=== PATIENT | female | born 1975 | race Caucasian/White ===

== ENCOUNTER → 2019-01-21 10:25 | Outpatient (CLI) | payer OTHER, SELFPAY ==
[2019-01-21 10:20] VITALS: BMI 32.7
--- NOTE | 2019-01-21 10:26 | RAD_ITS ---
STUDY: X-RAY - RIGHT KNEE REASON FOR EXAM: Pain. TECHNIQUE: 4 view(s) of the knee. COMPARISON: None. FINDINGS: Normal visualized distal femur. Normal visualized proximal tibia and fibula. Normal proximal tibiofibular articulation. Normal medial femorotibial compartment. Normal lateral femorotibial compartment. There is mild lateral tilt of the patella. The soft tissue structures are unremarkable. RAD/Knee 4 or More Views IMPRESSION: Mild lateral tilt of the patella. Electronically Signed: Sanchez Parsons MD at 16:02 EST Tel , Service support ,
--- NOTE | 2019-01-21 10:26 | RAD_ITS ---
STUDY: X-RAY - LEFT KNEE REASON FOR EXAM: Pain. TECHNIQUE: 4 view(s) of the knee. COMPARISON: None. FINDINGS: Normal visualized distal femur. Normal visualized proximal tibia and fibula. Normal proximal tibiofibular articulation. Normal medial femorotibial compartment. Normal lateral femorotibial compartment. Normal patellofemoral articulation. The soft tissue structures are unremarkable. RAD/Knee 4 or More Views IMPRESSION: Normal x-ray examination of the left knee. Electronically Signed: Sanchez Parsons MD at 15:59 EST Tel , Service support ,
== END ==
LOC: HPRAD 10:25
PROVIDERS: Referring Provider Orthopaedic Surgery; Visit Provider Orthopaedic Surgery
DX: M25.561 Pain in right knee (principal); M25.562 Pain in left knee
CPT/HCPCS: 73564

== ENCOUNTER → 2020-03-22 09:36 | Outpatient (CLI) | payer OTHER, SELFPAY ==
[2019-01-21 10:20] VITALS: BMI 32.7
--- NOTE | 2020-03-22 09:41 | RAD_ITS ---
STUDY: X-RAY - PELVIS REASON FOR EXAM: Female, 45 years old. LOWER BACK/HIP PAIN TECHNIQUE: One view of the pelvis was obtained. COMPARISON: None. FINDINGS: There is a non-specific bowel gas pattern. There are multiple calcified phleboliths in the left hemipelvis. Normal bilateral iliac wings, sacroiliac joints and visualized sacrum. Normal visualized bilateral superior and inferior pubic rami. Normal pubic symphysis. Normal ischial tuberosities. Normal visualized right femoral head. Normal right acetabulum. Normal right hip joint. Normal visualized left femoral head. Normal left acetabulum. Normal left hip joint. RAD/Pelvis 1 or 2 Views IMPRESSION: Normal x-ray examination of the pelvis. Electronically Signed: Berto Tate, at 13:20 EDT , Service support ,
[2020-03-22 12:31] LABS: Absolute Lymphocyte Count 1.24 X10^3/uL (0.83-4.51); Absolute Neutrophil Count 8.2 X10^3/uL (2.0-7.7); Basophil# 0.04 X10^3/uL; Basophil% 0.4 % (0-1); Hematocrit 46.8 % (37-47); Hemoglobin 15.4 g/dL (12.0-15.0); Lymphocyte # 1.24 X10^3/ul (4.0); Lymphocyte % 12.3 % (19-41); Mean Corp Hgb Conc 32.9 g/dL (32-36); Mean Corpuscular Hgb 29.7 pg (27.0-32.0); Mean Corpuscular Volume 90.2 fL (81-99); Mean Platelet Vol. 11.6 fl (6.2-12.0); Monocyte# 0.49 X10^3/uL; Monocyte% 4.9 % (0-10); NRBC Flagged by Analyzer 0 % (0-5); Neutrophil # 8.16 X10^3/uL (2.7-7.7); Platelet Count 314 K/mm3 (150-450); RBC Distribution Width CV 13.5 % (11.6-14.6); RBC Distribution Width SD 44.9 fl (35.1-43.9); Red Blood Count 5.19 M/mm3 (4.2-5.4); White Blood Count 10.1 K/mm3 (4.4-11.0)
[2020-03-22 12:46] LABS: Erythrocyte Sedimentation Rate 9 mm/hr (0-20)
[2020-03-22 13:06] LABS: ALB/GLOB Ratio 1.1 RATIO (0.9-2.4); AST(SGOT) 14 U/L (15-37); Alanine Aminotransfer ALT/SGPT 24 U/L (13-56); Albumin, Serum 3.9 g/dL (3.2-5.0); Alkaline Phosphatase 103 U/L (45-117); Anion Gap 4 (5-15); BUN 17 mg/dL (7-18); BUN/Creat Ratio 19.1 RATIO (10-20); CRP 7.84 mg/L (0.0-3.0); Calcium,Total 9.1 mg/dL (8.5-10.1); Chloride 109 mmol/L (98-107); Creatinine, Serum 0.89 mg/dL (0.55-1.02); EST Glomerular Filtration Rate 73 mL/min (>60); Est Glom Filt Rate - Afr Amer 88 mL/min (>60); Globulin 3.6 g/dL (2.2-4.2); Glucose 98 mg/dL (74-106); Protein, Total 7.5 g/dL (6.4-8.2); Rheumatoid Factor < 10.0 IU/mL (<15); Sodium Level 139 mmol/L (136-145)
[2020-03-22 13:19] LABS: Hepatitis B Surface Antibody Non-Reactive; Hepatitis B Surface Antigen Non-Reactive (Nonreactive); Hepatitis C Antibody Non-Reactive (Nonreactive)
[2020-03-24 01:25] LABS: ANTINUCLEAR ANTIBODIES DIRECT Negative (Negative)
[2020-03-28 23:53] LABS: CCP IgG Antibodies 8 units (0-19); HLA B27 Negative (.); Hepatitis B Core AB IgM Negative (Negative)
== END ==
LOC: MTLAB 09:39
PROVIDERS: PCP Nurse Practitioner Family; Referring Provider Internal Medicine Rheumatology; Visit Provider Internal Medicine Rheumatology
DX: M06.4 Inflammatory polyarthropathy (principal); M79.7 Fibromyalgia; M21.41 Flat foot [pes planus] (acquired), right foot; M21.42 Flat foot [pes planus] (acquired), left foot; E78.5 Hyperlipidemia, unspecified
CPT/HCPCS: 36415; 72170; 80053; 81374; 85025; 85652; 86038; 86140; 86200; 86431; 86705; 86706; 86803; 87340

== ENCOUNTER 2020-06-03 07:58 | Emergency (ER) | payer OTHER, SELFPAY ==
[2019-01-21 10:20] VITALS: BMI 32.7
[2020-06-03 08:00] VITALS: BP 127/85; PULSE 65; RESP 16; TEMP 36.6; O2SAT 97; BMI 34.0
--- NOTE | 2020-06-03 08:14 | CT_ITS ---
STUDY: CT ABDOMEN AND PELVIS WITH CONTRAST REASON FOR EXAM: Female, 45 years old. Abdominal pain RADIATION DOSAGE (If Supplied By Facility): CTDIvol = ( 17.77 ) mGy, DLP = ( 928.00 ) mGycm TECHNIQUE: Transaxial images were obtained from the dome of the diaphragm to the symphysis pubis with oral contrast. 100 ml of Isovue-370 contrast was administered. Sagittal and coronal images were reconstructed. Individualized dose optimization techniques were used for this CT. COMPARISON: None. FINDINGS: There is atelectasis at the lung bases. The visualized portions of the heart and pericardium are within normal limits. There are no calcified gallstones present. There are tiny indeterminate hypodensity in the liver, measuring 1.2 x 1.1 cm and the left lobe and 1.2 x 1.1 cm in the right lobe. The spleen is normal in size. The pancreas is within normal limits. The adrenal glands are within normal limits. There are no renal or ureteral stones. There is no hydronephrosis. There are no suspicious renal lesions. There is marked concentric thickening of the stomach wall in the distal body of the stomach. There is no bowel obstruction or inflammation. The appendix is visualized and appears normal. The aorta is normal in caliber. There is no abdominal or pelvic free air, free fluid, fluid collection or lymphadenopathy. There are physiologic cysts in the left adnexa. There are no destructive osseous lesions. CT/Abdomen/Pelvis WITH Contrast IMPRESSION: Marked concentric wall thickening in the distal body of the stomach. This likely represents gastritis. However, an underlying gastric mass cannot be excluded. Indeterminate hypodensities in the liver. These are nonspecific and may represent cysts or hemangioma. However, given the findings in the stomach, further evaluation with a liver protocol MRI is recommended to exclude a metastatic lesion. No bowel obstruction or inflammation. Normal appendix. Electronically Signed: Srinivasa Colindres, at 10:26 EDT Tel , Service support ,
--- NOTE | 2020-06-03 08:15 | ED.DCSUM_ITS ---
History of Present Illness Chief Complaint: Flank Pain Informant: Patient Onset: Yesterday Context: Gradual Onset Timing: Waxes and wanes Current Severity: Moderate Maximum Severity: Severe Narrative: Patient presents secondary to right flank pain. She states pain started yesterday morning. 2 days prior to this she had noted some nausea and dyspepsia. Patient was seen in the [place] [facility] yesterday. I was able to review the results from that visit. CT scan showed no renal calculi with a normal appendix and normal bowel. CBC, CMP, lipase, test all negative. Urinalysis did show 1+ bacteria with some white cells however there was high epithelial cells as well. Patient was discharged with [place], Zofran, and Keflex. Patient states in spite of this she still is very uncomfortable and was not able to sleep last night secondary to pain. Pain seems to be worse in the right lower quadrant at this time. - Past Medical History (1) Rheumatoid arthritis Status: Chronic (2) Anxiety Status: Chronic (3) Fibromyalgia Status: Chronic Past Medical History - Allergies and Home Meds Allergies/Adverse Reactions: Allergies egg Allergy (Verified 06/03/20 07:58) digestive issues Primary Care Physician: Nia Perez NP-C [Primary Care Provider] - Prior records reviewed: Yes Surgical History: - - Oophorectomy Smoking Status: Current some day smoker Drugs: Marijuana Review of Systems General: Denies: Fever Eyes: Denies: Visual changes - bilaterally ENT: Denies: Bilateral ear pain Cardiovascular: Denies: Chest pain Respiratory: Denies: Dyspnea, Cough Gastrointestinal: Reports: Abdominal pain, Nausea. Denies: Vomiting, Diarrhea Genitourinary: Denies: Dysuria Musculoskeletal: Denies: Extremity Pain Skin: Denies: Rash Neurological: Denies: Headache Hematologic: Denies: Easy bruising Allergy: Denies: Uticaria Physical Exam Vital Signs/Narrative: Vital Signs Temp Pulse Resp BP Pulse Ox 06/03/20 08:00 97.8 F 65 16 127/85 H 97 Inital Vital Signs reviewed: Yes General: Well nourished, Well developed Head: Normocephalic ENT: Moist mucous membranes Cardiovascular: Regular rate, Regular rhythm Respiratory: No distress, CTA bilaterally Abdomen: Soft, Tender - Right lower quadrant tenderness to palpation., Hypoactive bowel sounds. Negative for: Guarding, Rebound tenderness Extremities: Nontender Skin: Normal color Neurological: Alert, Oriented x3 Psychological: Normal affect Diagnostic/Tx/Re-eval Impressions Abdomen/Pelvis CT 06/03/20 08:14 IMPRESSION: Marked concentric wall thickening in the distal body of the stomach. This likely represents gastritis. However, an underlying gastric mass cannot be excluded. Indeterminate hypodensities in the liver. These are nonspecific and may represent cysts or hemangioma. However, given the findings in the stomach, further evaluation with a liver protocol MRI is recommended to exclude a metastatic lesion. No bowel obstruction or inflammation. Normal appendix. Electronically Signed: Srinivasa Colindres, at 10:26 EDT Tel , Service support , 06/03/20 08:14 Abdomen/Pelvis WITH Contrast [CT] Stat Laboratory Results 06/03/20 06/03/20 06/03/20 08:30 08:30 08:30 WBC 8.3 RBC 4.48 Hgb 13.8 Hct 41.8 MCV 93.3 MCH 30.8 MCHC 33.0 RDW Std Deviation 47.8 H RDW Coeff of [place] 13.9 Plt Count 290 MPV 10.8 Immature Gran % (Auto) 0.200 Neut % (Auto) 78.6 H Lymph % (Auto) 13.4 L [place] % (Auto) 6.2 Eos % (Auto) 1.0 Baso % (Auto) 0.6 Absolute Neuts (auto) 6.5 Absolute Lymphs (auto) 1.11 Nucleated RBC % 0 Sodium 139 Potassium 3.7 Chloride 108 H Carbon Dioxide 26.0 Anion Gap 5 BUN 10 Creatinine 0.73 Estim Creat Clear Calc 73.44 Est GFR (MDRD) Af Amer 111 Est GFR (MDRD) Non-Af 92 BUN/Creatinine Ratio 13.7 Glucose 108 H Calcium 8.3 L Total Bilirubin 0.50 AST 20 ALT 38 Alkaline Phosphatase 98 Total Protein 6.7 Albumin 3.5 Globulin 3.2 Albumin/Globulin Ratio 1.1 Urine Color Yellow Urine Clarity Clear Urine pH 7.0 Ur Specific [place] 1.010 Urine Protein Negative Urine Glucose (UA) Normal Urine Ketones Negative Urine Occult Blood Negative Urine Nitrite Negative Urine Bilirubin Negative Urine Urobilinogen Normal Ur Leukocyte Esterase Negative Urine RBC 0 SEEN Urine WBC 0 SEEN Ur Squamous Epith Cells 0-5 SEEN Urine Bacteria 0 SEEN Urine Mucus 0 SEEN - Medical Decision Making Patient was given IV fluids, morphine, Zofran, and Toradol. On repeat evaluation she was resting more comfortably but now pain is starting to return. Test results are discussed with her. At this time I have no definitive cause for her symptoms. Urine here does not show any sign of infection I advised her she did not need to take the Keflex. She will be given another prescription for pain medication that she can cook pickled meat on Friday afternoon. She is to see her doctor on Friday for repeat abdominal exam. She was given return instructions. ED Disposition - Plan for ED Patient: Disposition: Home or Assisted Living Diagnosis: Abdominal pain Instructions: ED Abdominal Pain Unkn Cause Fem Prescriptions: Hydrocodone Bitart/Apap 5-325 [[place] 5MG-325MG] 1 tablet PO Q6H PRN PRN 3 Days #10 tablet PRN Reason: Pain Transmission Status: Sent to [facility] Referrals: Nia Perez, HUNG-C [Primary Care Provider] - 2 Days
[2020-06-03] MEDS: Morphine 4 MG/ML Syringe IV (08:29)
[2020-06-03] MEDS: Ondansetron 4 MG/2 ML Vial IV (08:29)
[2020-06-03] MEDS: Ketorolac 30 MG/ML Syringe IV (08:32)
[2020-06-03] MEDS: 0.9% Normal Saline 1,000 ML 150 ML IV (08:39)
[2020-06-03 08:40] LABS: Bacteria 0 SEEN /hpf (None Seen); Mucous, Urine 0 SEEN /hpf (<or=2+); Red Blood Cells-Urine 0 SEEN /hpf (0-5); White Blood Cells 0 SEEN /hpf (0-5)
[2020-06-03 08:47] LABS: Absolute Lymphocyte Count 1.11 X10^3/uL (0.83-4.51); Absolute Neutrophil Count 6.5 X10^3/uL (2.0-7.7); Basophil# 0.05 X10^3/uL; Basophil% 0.6 % (0-1); Color, Urine Yellow (Yellow); Eosinophil# 0.08 X10^3/uL; Glucose, Dipstick Normal (Normal); Hematocrit 41.8 % (37-47); Hemoglobin 13.8 g/dL (12.0-15.0); Ketone-Dipstick Negative (Negative); Leukocyte Esterase-Dipstick Negative /ul (Negative); Lymphocyte # 1.11 X10^3/ul (4.0); Lymphocyte % 13.4 % (19-41); Mean Corpuscular Hgb 30.8 pg (27.0-32.0); Mean Corpuscular Volume 93.3 fL (81-99); Mean Platelet Vol. 10.8 fl (6.2-12.0); Monocyte# 0.51 X10^3/uL; Monocyte% 6.2 % (0-10); NRBC Flagged by Analyzer 0 % (0-5); Neutrophil # 6.51 X10^3/uL (2.7-7.7); Neutrophil % 78.6 % (47-70); Nitrite-Dipstick Negative (Negative); Occult Blood-Urine Negative /ul (Negative); Platelet Count 290 K/mm3 (150-450); Protein-Dipstick Negative (Negative); RBC Distribution Width CV 13.9 % (11.6-14.6); RBC Distribution Width SD 47.8 fl (35.1-43.9); Red Blood Count 4.48 M/mm3 (4.2-5.4); Urine Bilirubin Dipstick Negative (Negative); Urine Clarity Clear (Clear); Urine Urobilinogen Normal (Normal); White Blood Count 8.3 K/mm3 (4.4-11.0)
[2020-06-03 08:58] LABS: ALB/GLOB Ratio 1.1 RATIO (0.9-2.4); AST(SGOT) 20 U/L (15-37); Alanine Aminotransfer ALT/SGPT 38 U/L (13-56); Albumin, Serum 3.5 g/dL (3.2-5.0); Alkaline Phosphatase 98 U/L (45-117); Anion Gap 5 (5-15); BUN 10 mg/dL (7-18); BUN/Creat Ratio 13.7 RATIO (10-20); Calcium,Total 8.3 mg/dL (8.5-10.1); Chloride 108 mmol/L (98-107); Creatinine, Serum 0.73 mg/dL (0.55-1.02); EST Glomerular Filtration Rate 92 mL/min (>60); Est Glom Filt Rate - Afr Amer 111 mL/min (>60); Estimated Creatinine Clearance 73.44 ml/min; Globulin 3.2 g/dL (2.2-4.2); Glucose 108 mg/dL (74-106); Potassium 3.7 mmol/L (3.5-5.1); Protein, Total 6.7 g/dL (6.4-8.2); Sodium Level 139 mmol/L (136-145)
[2020-06-03 09:01] VITALS: BP 105/92; PULSE 78; RESP 16; TEMP 36.6; O2SAT 97
[2020-06-03 09:01] LABS: Squamous Epithelial Cells - UA 0-5 SEEN /hpf (5-10)
[2020-06-03 10:47] VITALS: BP 157/88; PULSE 52; RESP 18; O2SAT 98
--- NOTE | 2020-06-03 10:48 | ED.RN ---
THIS NURSE REVIEWED D/C INSTRUCTIONS WITH PT. PT VERBALIZED UNDERSTANDING OF INSTRUCTIONS. IV D/C. IV CATHETER INTACT. PT TOLERATED WELL. PT DENIES FURTHER NEEDS OR QUESTIONS AT THIS TIME
== END 2020-06-03 10:50 | disposition home or self-care (01) ==
PROVIDERS: Emergency Provider Emergency Medicine; PCP Nurse Practitioner Family
DX: R10.31 Right lower quadrant pain (principal); M06.9 Rheumatoid arthritis, unspecified; M79.7 Fibromyalgia; F17.200 Nicotine dependence, unspecified, uncomplicated
CPT/HCPCS: 74177; 80053; 81001; 85025; 96361; 96374; 96375; 99283; J7030; Q9967; J2405

== ENCOUNTER → 2020-06-19 06:30 | Outpatient (CLI) | payer OTHER, SELFPAY ==
[2020-06-03 08:00] VITALS: BMI 34.0
--- NOTE | 2020-06-19 06:46 | MRI_ITS ---
STUDY: MRI ABDOMEN WITH AND WITHOUT CONTRAST REASON FOR EXAM: Female, [address], c/o epigastric pain TECHNIQUE: Standardized fat and water weighted pulse sequences were obtained in all 3 orthogonal planes post contrast administration. IV 16 cc dotarem was administered for the contrast portion of the examination. COMPARISON: CT 06/03/2020 FINDINGS: The visualized lung bases are unremarkable. The visualized portions of the heart are within normal limits. 1 cm T2 hyperintense lesion in the lateral segment left lobe of the liver demonstrates peripheral globular enhancement consistent with a hemangioma. 0.8 cm T2 hyperintense lesion within the anterior segment the right lobe of liver also demonstrates peripheral globular enhancement consistent with a hemangioma. Normal gallbladder and extrahepatic biliary system. Normal spleen. Normal pancreas. Normal bilateral adrenal glands. Normal right kidney. 1 cm cyst in the medial cortex of the upper pole the left kidney. Normal visualized stomach. Normal small intestine. Normal colon. There is non-visualization of the appendix. Normal abdominal aorta. Normal inferior vena cava. Normal retroperitoneum. Normal abdominal wall. Normal osseous structures. MRI/MRI Abd WITH and W/O Contrast IMPRESSION: MRI confirms 2 small hemangiomas within the liver. Electronically Signed: Francisco Vázquez MD at 10:18 EDT Tel , Service support ,
== END ==
PROVIDERS: PCP Nurse Practitioner Family; Referring Provider Nurse Practitioner Family; Visit Provider Nurse Practitioner Family
DX: R93.5 Abnormal findings on diagnostic imaging of other abdominal regions, including retroperitoneum (principal)
CPT/HCPCS: 74183; A9575; A4216

== ENCOUNTER 2022-09-15 17:52 | Emergency (ER) | payer OTHER, SELFPAY ==
[2022-09-15 17:54] VITALS: BP 149/58; PULSE 74; RESP 18; TEMP 36.8; O2SAT 96; BMI 32.1
--- NOTE | 2022-09-15 18:13 | ED.VIS.LOWEX ---
HPI History of Present Illness HPI Narrative: Patient presents with left ankle pain that began tonight. Patient states she stepped in a hole and inverted her left ankle. Patient states she fell. Patient denies any head injury or loss of consciousness. Patient states her pain is aching. Patient states it is localized to the left ankle. Patient states it does radiate up her calf. Patient states it is worse with movement. Patient states nothing helps with it. Patient does admit to some tingling in her toes. Patient denies any weakness. Patient denies any other injuries. Chief Complaint: Lower Extremity Injury Informant: patient Occured/Mechanism Mechanism/Context: Yes fall Comment: Inversion injury Onset/Context/Timing Onset: Today Context: Sudden Onset Timing: Continuous Quality of Pain: Aching Location: Left ankle Worsened by: Movement Relieved by: Nothing Associated Symptoms Associated Symptoms: Positive for Parasthesia; Negative for Weakness or Loss of Funtion [facility] Medical History Allergies GERD (gastroesophageal reflux disease) Home Medications naproxen 375 mg tablet 375 mg PO PRN PRN Pain Score 1-09/0906/03/20 [History Last Taken Unknown] fluticasone propionate 50 mcg/actuation nasal spray,suspension intranasal 09/15/22 [History Last Taken Unknown] montelukast 10 mg tablet mg 09/15/22 [History Last Taken Unknown] omeprazole 20 mg capsule,delayed release mg 09/15/22 [History Last Taken Unknown] Allergy/AdvReac Type Severity Reaction Status Date / Time egg Allergy digestive Verified 09/15/22 17:53 issues Social History Smoking Status: Current some day smoker tobacco type: cigarettes ROS ROS ED Constitutional Constitutional ED: Denies chills or fever(s) Eyes Eyes: Denies blurry vision or change in vision ENT ENT ED: Denies rhinorrhea or sore throat Cardiovascular Cardiovascular: Denies chest pain or palpitations Respiratory/Chest Respiratory/Chest: Denies cough or dyspnea Gastrointestinal Gastrointestinal: Reports nausea; Denies vomiting Genitourinary Genitourinary ED: Denies dysuria or hematuria Musculoskeletal Musculoskeletal: Denies back pain or neck pain Integumentary Denies abscess or rash Neurologic Neurologic: Denies headache(s) or weakness Allergic/Immunologic Allergic/Immunologic ED: Denies mouth swelling or urticaria EXAM Physical Exam Const Vital Signs: 09/15/22 17:54 Temperature 98.2 F Temperature Source Temporal Pulse Rate 74 Respiratory Rate 18 Blood Pressure 149/58 H Blood Pressure Mean 88 Pulse Ox 96 Oxygen Delivery Method Room Air Positive well nourished and well developed General Appearance ED: well developed and NAD HEENT Reports moist mucous membranes Neck full ROM and supple Extremity Extremity Narrative: There is tenderness and mild edema over the lateral aspect of the left ankle. There is no bony crepitance or step-off. There is no obvious deformity noted. There is no tenderness over the fifth metatarsal. There is no tenderness over the proximal fibula. Pedal pulses are equal bilaterally. Sensation was intact to light touch in all digits. Capillary refill was less than 2 seconds in all digits. Neuro oriented x3, CN's II-XII intact bilaterally, moves all extremities and no sensory deficits noted Sensorium / Orientation: alert Motor Exam: strength 5/5 throughout Psych mental status grossly normal Skin no wounds MDM MDM MDM Narrative Medical decision making narrative: X-rays of the left ankle were obtained. There are 3 views. On my interpretation, there is no acute fracture. There is no dislocation. There is no soft tissue swelling. Radiologist also interpreted the x-rays and agrees. Patient was advised of her. Patient was given an Aircast. Patient was instructed to ice and elevate the left ankle. Patient was instructed to take Tylenol or ibuprofen as needed for pain. Patient was instructed to follow-up with her primary in 5 to 7 days. Patient understands and is agreeable with the plan. All questions were answered Radiography Diagnostic Testing: Clinical Impression(s) from Imaging Studies Ankle X-Ray 09/15/22 18:17 IMPRESSION: No acute fracture or dislocation. Electronically Signed: Francisco Vázquez MD at 19:09 EDT , Discharge Plan Triage Chief Complaint: Lower Extremity Injury ED Provider: Williams Zhou Dx/Rx/DC Orders Clinical Impression: Inversion sprain of left ankle, Fall Instructions: ED Ankle Sprain (Adult) Prescriptions: No Action naproxen 375 MG tablet 375 mg PO PRN PRN (Reason: Pain Score 1-10/10) omeprazole 20 mg capsule,delayed release(DR/EC) montelukast 10 mg tablet fluticasone propionate 50 mcg/actuation spray,suspension INTRANASAL Primary Care Provider: Nia Preez NP Referrals: Nia Perez NP, [employer]-C [Primary Care Provider] - 3-5 Days Disposition Disposition: Home, Self Care
--- NOTE | 2022-09-15 18:17 | RAD_ITS ---
STUDY: X-RAY - LEFT ANKLE REASON FOR EXAM: Female, 47 years old. Injury/Pain TECHNIQUE: 3 view(s) of the ankle. COMPARISON: None. FINDINGS: Normal visualized distal tibia and fibula. Chronic corticated avulsion fracture lateral malleolus the fibula. Normal tibiotalar articulation and ankle mortise. Normal visualized talus and calcaneus. The visualized subtalar, talonavicular, calcaneocuboid and tarsal articulations are normal. The soft tissue structures are unremarkable. RAD/Ankle min 3 Views IMPRESSION: No acute fracture or dislocation. Electronically Signed: Francisco Vázquez MD at 19:09 EDT ,
== END 2022-09-15 19:34 | disposition home or self-care (01) ==
PROVIDERS: Emergency Provider Emergency Medicine; PCP Nurse Practitioner Family; Visit Provider Emergency Medicine
DX: S93.402A Sprain of unspecified ligament of left ankle, initial encounter (principal); W17.2XXA Fall into hole, initial encounter; F17.210 Nicotine dependence, cigarettes, uncomplicated
CPT/HCPCS: 73610; 99283